=== PATIENT | female | born 1990 | race African-American/Black ===

== ENCOUNTER 2017-12-31 15:11 | Outpatient (CLI) | END 2017-12-31 16:30 | disposition home or self-care (01) ==

== ENCOUNTER 2018-01-13 16:11 | Outpatient (CLI) | END 2018-01-13 19:20 | disposition home or self-care (01) ==

== ENCOUNTER 2018-01-16 10:43 | Outpatient (CLI) | END 2018-01-16 13:46 | disposition home or self-care (01) ==

== ENCOUNTER 2018-01-18 17:55 | Outpatient (CLI) | END 2018-01-18 21:42 | disposition home or self-care (01) ==

== ENCOUNTER 2018-01-20 13:20 | Inpatient (IN) | END 2018-01-26 18:36 | disposition home or self-care (01) | DRG 766 ==

== ENCOUNTER 2018-01-27 23:07 | Observation (INO) | END 2018-02-01 15:27 | disposition home or self-care (01) ==